=== PATIENT | female | born 1955 | race Caucasian/White ===

== ENCOUNTER → 2020-08-07 | Outpatient (CLI) | payer OTHER | LOC: SJCVCIMAG 10:40 | PROVIDERS: ATTEND Internal Medicine | DX: I34.0 Nonrheumatic mitral (valve) insufficiency (principal); R00.0 Tachycardia, unspecified; I49.3 Ventricular premature depolarization; R06.00 Dyspnea, unspecified; R53.83 Other fatigue; R68.84 Jaw pain; Z79.899 Other long term (current) drug therapy ==

== ENCOUNTER 2020-08-21 06:16 | Observation (INO) | payer OTHER ==
[2020-08-21] VITALS (9 sets, daily range): BP systolic 109–138; BP diastolic 64–81
[~2020-08-21] VITALS: Ht 172.7 cm; Wt 107.0 kg
[2020-08-21] MEDS ORDERED: PROAIR HFA8.5 GM INH (07:33)
[2020-08-21] MEDS ORDERED: BIOTIN1000 MCG PO (07:34)
[2020-08-21] MEDS ORDERED: FEXOFENADINE-P1 EACH PO (07:34)
[2020-08-21] MEDS ORDERED: FISH OIL 1,0001 EAC9 PO (07:35)
[2020-08-21] MEDS ORDERED: FLONASE 0.05%50 MCG NARES (07:35)
[2020-08-21] MEDS ORDERED: FLOVENT DISKU100 MCG INH (07:37)
[2020-08-21] MEDS ORDERED: SUPER THERAVIT1 EACH PO (07:37)
[2020-08-21] MEDS ORDERED: NITROSTAT0.4 MG SUBLING (07:37)
[2020-08-21] MEDS ORDERED: PROTONIX40 M2 PO (07:38)
[2020-08-21] MEDS ORDERED: OXYBUTYNIN 5 MG5 M2 PO (07:38)
--- NOTE | 2020-08-21 09:47 | EKG ---
[place] [address] [employer] [address] [place] [address] ELECTROCARDIOGRAM REPORT Name: KEYSHAWN MARIN Room #: 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
--- NOTE | 2020-08-21 10:34 | CATHLAB ---
[facility] [place] [address] INVASIVE PROCEDURE REPORT Name: KEYSHAWN MARIN Room #: 206-P ADM Kyle M.R.#: [id number] Admission: 08/21/20 Attend Phys: Tutu Odom MD, Discharge: Date of : 55 Report #: [id number] THIS REPORT FOR: cc: Cedrick Ashton Bradley Dean DO Lundgren, Craig H. MD [facility] ~ APPROVED REPORT Study performed: 08/21/2020 07:15:53 Patient Details Patient Status: Out-Patient Room #: The patient is a 64 year-old female Event Personnel Tutu Odom Guidance Director, Laury Agosto RN RN, Kemi Meadows Monitor, Trupti Kaplan RTR Scrub, Aurora Reyes RTR, OLDER WORKER SPECIALIST Scrub Procedures Performed Art Access - R femoral artery* Left Heart Cath w/or w/o Coronaries [id number] [facility] STEW Place w/wo Plasty Single LAD 226899 STEW Place w/wo Plasty Single PDA 830165 07028 Initial Mod Sed Same Phys/QHP Gr5y 347248 42751 Mod Sed Same Phys/QHP Ea 487192 Hemostasis w/ Mynx Indication Chest pain Procedure Narrative The patient was brought electively to the Cardiac Catheterization Laboratory and was prepped and draped in a sterile manner. The Right Groin^ was infiltrated with 1% Lidocaine subcutaneous anesthesia. A PINNACLE 6FR Sheath #[id number] sheath was inserted into the RFA^. Coronary angiography was performed using coronary diagnostic catheters. The right coronary system was accessed and visualized with a JR4 catheter. The left coronary system was accessed and visualized with a JL4 catheter. The left ventricle was accessed and visualized with a ANGLE PIC catheter. Left ventriculogram was performed in 30 degree projection. There was no hematoma. Intraoperative Conscious Sedation Sedation start time: 802 Case end Time: 939 [facility] [address] INVASIVE PROCEDURE REPORT Name: KEYSHAWN MARIN Room #: 206-P [facility] [place] ..#: [id number] Admission: 08/21/20 Attend Phys: Tutu Odom, Discharge: Date of : 55 Report #: [id number] Fentanyl 100 mcg Versed 2 mg Fluoro Time: 14.40 minutes Dose: DAP 94001.70 cGycm2 4270 mGy Contrast Type and Amount: Omnipaque 350 ml Coronary Angiography The patient's coronary anatomy is right dominant. Diagnostic Cath Left Main Normal left main LAD Critical 99% proximal LAD stenosis involving the origin of the LAD. ABDULAZIZ II flow in the LAD Diagonal 1 Mild-moderate plaquing Diagonal 2 Small to moderate second diagonal with mild proximal plaquing Circumflex Large but nondominant circumflex comprised of a single bifurcating marginal branch OM1 50% proximal OM1 stenosis. This vessel bifurcated, the superior limb except of a 70% ostial stenosis. This branching vessel was not especially large in caliber The inferior limb exhibited mild plaquing. Right Coronary Dominant right coronary with mild 10-20% scattered proximal, mid, and distal plaquing R PDA 85% mid PDA stenosis RPLV Mild posterior lateral branch scattered plaquing Left Ventriculography The left ventricle is normal in size with normal contractility. The left ventricular ejection fraction is estimated to be 60-65%. Left ventricular wall motion abnormalities are not present. There is no mitral insufficiency. IVUS Anticoagulation was achieved with . Heparin, Integrilin Fractional Flow [place] was performed on the 85 vessel. A 3 Guide Catheter was used to engage the LAUNCHER 6FR JR 4 #[id number] ostium. A PDA Interventional Guidewire was used. A Luge Wire .014 x 182CM #[id number] was used. IVUS Findings Euphora RX 2.5 x 12 #[id number] Hemodynamics The aortic pressure is 133/52 mmHg with a mean of 80 mmHg. The left ventricular pressure is 114/11 mmHg with a mean of mmHg. The left [facility] [address] [place] [address] INVASIVE PROCEDURE REPORT Name: KEYSHAWN MARIN Room #: 206-P [facility] [place] M.R.#: [id number] Admission: 08/21/20 Attend Phys: Tutu Odom, Discharge: Date of : 55 Report #: [id number] ventricular end diastolic pressure is 23 mmHg. PCI Technique Lesion Anticoagulation was achieved with Heparin, Integrilin. Patient was preloaded with Effient. Percutaneous coronary intervention was performed on the proximal left anterior descending artery segment. The lesion stenosis prior to intervention was 99% with ABDULAZIZ 2 flow. A LAUNCHER 6FR EBU 3.5 #882767 Guide Catheter was used to engage the left main ostium. A Luge Wire .014 x 182CM #225348 Interventional Guidewire was used to cross the lesion. BALLOON DILATION A Balloon catheter Euphora RX 2.5 x 15 #[id number] was inserted and inflated up to 10.00atm for 11seconds. Additional Inflation: 13.00atm for 28seconds. STENT DEPLOYMENT A drug-eluting stent RESOLUTE PETAR OTW 3.0 X 12 #[id number] was inserted and inflated up to 14.00atm for 25seconds. POST STENT DEPLOYMENT BALLOON DILATION A Balloon catheter Euphora NC RX 3.0 x 12 #[id number] was inserted and inflated up to 12.00atm for 14seconds. Additional Inflation: 22.00atm for 25seconds. Final angiography reveals 0 % stenosis with ABDULAZIZ 3 flow. PCI Technique Lesion Anticoagulation was achieved with Heparin, Integrilin. The lesion stenosis prior to intervention was 85% with ABDULAZIZ 3 flow. A LAUNCHER 6FR JR 4 #446175 Guide Catheter was used to engage the PDA ostium. A Luge Wire .014 x 182CM #[id number] Interventional Guidewire was used to cross the lesion. BALLOON DILATION A Balloon catheter Euphora RX 2.5 x 12 #[id number] was inserted and inflated up to 12atm for 25seconds. STENT DEPLOYMENT A stent RESOLUTE PETAR RX 2.5 X 15 #[id number] was inserted and inflated up to 15.00atm for 34seconds. POST STENT DEPLOYMENT BALLOON DILATION A Balloon catheter TREK NC RX 2.5 X 12 #[id number] was inserted and inflated up to 18.00atm for 27seconds. Additional Inflation: 18.00atm for 23seconds. [address] [address] INVASIVE PROCEDURE REPORT Name: KEYSHAWN MARIN Room #: 206-P ADM [place] M.R.#: [id number] Admission: 08/21/20 Attend Phys: Tutu Odom, Discharge: Date of : 55 Report #: [id number] Final angiography reveals 0 % stenosis with ABDULAZIZ 3 flow. PCI Technique Lesion 2 A Guide Catheter was used to engage the ostium. Conclusion 1. Normal global and regional left ventricular systolic function. EF 65% 2. Normal left main 3. Critical 99% ostial LAD stenosis stented with a 3.0 x 12 mm Resolute stent 4. Moderate plaquing in a nondominant circumflex 5. Dominant right coronary with 85% posterior descending stenosis, stented with a 2.5 x 12 mm Resolute stent Recommendations Daily ASA with Plavix for at least one year Cardiac Rehabilitation Referral Agg[facility] Therapy <ELECTRONICALLY SIGNED> By: Tutu Odom MD, [facility] 08/21/20 1034 1034 33 Tutu Odom MD, FAC /INF
--- NOTE | 2020-08-21 10:51 | NUR ---
PT ARRIVED TO UNIT AT 1035, PTS VSS. PTS RIGHT GROIN SITE IS CLEAN DRY WITH DRESSING INTACT. NO HEMATOMA PRESENT. PT VOICES NO CONCERNS AT THIS TIME. ADMISSION ASSESSMENT COMPLETED CHARTED. PT EDUCATED TO UNIT POLICY AND PROCEDURES. PT EDUCATED ABOUT BED REST TIME AND POST CATH VITALS. WILL CONTINUE TO MONITOR AND FOLLOW POC.
[2020-08-21] MEDS ORDERED: EFFIENT10 MG PO (12:20)
[2020-08-21] MEDS ORDERED: ROSUVASTATIN CA20 MG PO (12:20)
[2020-08-21] MEDS ORDERED: METOPROLOL SUCC50 MG PO (12:20)
[2020-08-21] MEDS ORDERED: ASPIRIN325 PO (12:20)
--- NOTE | 2020-08-21 12:54 | EKG ---
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: SBULJOSE ANTONIO : 1955 Requested By: Tutu Odom Order Number: [id number] MD: Alberto Card Measurements Intervals [place] Rate: 55 P: 49 ME: 120 QRS: 24 QRSD: 87 T: 35 QT: 409 QTc: 392 Interpretive Statements Sinus rhythm Compared to ECG 08/21/2020 07:36:49 No significant changes Electronically Signed On 08-21-2020 12:53:49 CDT by Alberto Card [email or web address] <ELECTRONICALLY SIGNED> By: Alberto Card MD, [facility] 08/21/20 1253 1052 1052 Alberto Card MD, FACC /EPI
[2020-08-22 00:15] VITALS: BP 117/60
[2020-08-22 03:19] LABS: HEMATOCRIT 38.5 % (37.0-47.0); MCH 32.5 pg (26.0-34.0); MCHC 33.8 g/dL (28.0-37.0); RBC 4.01 mil/uL (4.20-5.00); RDW 12.5 % (10.5-14.5); WBC 12.1 thou/uL (4.0-11.0)
[2020-08-22 03:36] LABS: CALCIUM 8.5 mg/dL (8.5-10.1); POTASSIUM 4.1 mmol/L (3.5-5.1); TOTAL BILIRUBIN 0.5 mg/dL (0.2-1.0); TOTAL PROTEIN 6.3 g/dL (6.4-8.2)
[2020-08-22 04:00] VITALS: BP 107/54
--- NOTE | 2020-08-22 04:07 | NUR ---
SLEPT MOST OF SHIFT. UP AD LIENTTE WITH STEADY GAIT. RIGHT GROIN SITE DSG C/D/I AND NO HEMATOMA OR BLEEDING NOTED. STATES IS A LITTLE SORE. WORKING ON GOALS AND PLAN OF CARE FOR NOC. PLANS FOR DISCHARGE THIS AM. CONTINUE TO ASSES.
[2020-08-22 07:44] VITALS: BP 115/66
[2020-08-22 08:42] VITALS: BP 115/66
[2020-08-22 09:02] VITALS: BP 115/66
--- NOTE | 2020-08-22 09:07 | NUR ---
PT IN BED. PT TO BE D/C THIS MORNING AROUND 10AM. PT CALLED RIDE TO NOTIFY HER OF DISCHARGE. PT VOICES NO CONCERNS AT THIS TIME. WILL CONTINUE TO MONITOR UNITL D/C.
--- NOTE | 2020-08-22 10:07 | D ---
[facility] [place] [address] DISCHARGE SUMMARY Name: KEYSHAWN MARIN Room #: 206-P [facility] M.R.#: [id number] Admission: 08/21/20 Attend Phys: Tutu Odom MD, Discharge: Date of : 55 Report #: [id number] THIS REPORT FOR: cc: Cedrick Ashton Bradley Dean DO Lundgren, Craig H. MD [facility] ~ DOC #: [id number] Tutu Odom MD [facility] DATE OF SERVICE: 08/21/2020 DISCHARGE DIAGNOSES: 1. Unstable angina. 2. Severe multivessel coronary artery disease with stenting of the ostium of the LAD with a 3.0 x 12 mm Resolute stent, stenting of the mid posterior descending with a 2.5 x 12 mm Resolute stent. 3. Hypertension. 4. Dyslipidemia. 5. Asthma. HISTORY OF PRESENT ILLNESS: For the complete details for the history of present illness, see dictated history and physical. Briefly, the patient is a 64-year-old woman with a fairly limited past medical history. She presented with progressive exertional chest pain. An outpatient stress study demonstrated LV dilatation with exercise. This was a very high risk stress study and she was admitted for further evaluation by coronary angiography. HOSPITAL COURSE: The patient underwent a coronary angiography, the full details of this can be found under separate heading and dictation. In summary, left ventricular systolic function was found to be normal. She had a critical 99% stenosis at the ostium of the LAD. This was stented with a 3.0 x 12 mm Resolute stent. There was moderate plaquing in a nondominant circumflex. The right coronary was dominant with an 85% posterior descending branch stenosis treated with a 2.5 x 12 mm Resolute medicated stent. Her post-procedural course was uneventful. She was treated with heparin, aspirin, Effient, and Integrilin in the periprocedural setting. She had excellent groin hemostasis at the time of discharge. DISCHARGE MEDICATIONS: Include Toprol-XL 50 mg daily, aspirin 81 mg daily, Effient 10 mg daily, rosuvastatin 20 mg daily, Flonase and oxybutynin. DISCHARGE ACTIVITY: As instructed post-catheterization. Arrangements were made for outpatient cardiac rehabilitation. Discharge medicines were reconciled. Follow up with Dr. Tera Siddiqui as previously arranged followup with myself in 1 month. DISCHARGE DIET: Low fat, low cholesterol, [place] [address] DISCHARGE SUMMARY Name: KEYSHAWN MARIN Room #: 206-P [facility] M.R.#: [id number] Admission: 08/21/20 Attend Phys: Tutu Odom MD, Discharge: Date of : 55 Report #: [id number] DISCHARGE CONDITION: Stable and improved. Tutu Odom MD [facility] CHL/SWA <ELECTRONICALLY SIGNED> By: Tutu Odom MD, [facility] 08/22/20 1007 1620 1727 Tutu Odom MD, [facility] /nt
== END 2020-08-22 10:25 | disposition home or self-care (01) ==
LOC: CATH 06:16 → 2N 10:30 → CATH 10:55 → 2N 08-22 10:25
PROVIDERS: ADMIT Internal Medicine; ATTEND Internal Medicine
DX: I25.110 Atherosclerotic heart disease of native coronary artery with unstable angina pectoris (principal); I10 Essential (primary) hypertension; E78.5 Hyperlipidemia, unspecified; J45.909 Unspecified asthma, uncomplicated; Z88.2 Allergy status to sulfonamides